=== PATIENT | female | born 1930 | race Caucasian/White ===

== ENCOUNTER 2016-07-09 13:12 | Emergency (ER) | payer MEDICARE, OTHER ==
[2016-07-09 13:42] VITALS: BP 155/58; PULSE 94; RESP 22; TEMP 98.4; O2SAT 98
== END 2016-07-09 15:13 | disposition home or self-care (01) | DRG 563 ==
LOC: ED 13:12
DX: S62.645A Nondisplaced fracture of proximal phalanx of left ring finger, initial encounter for closed fracture (principal); S52.612A Displaced fracture of left ulna styloid process, initial encounter for closed fracture; S62.647A Nondisplaced fracture of proximal phalanx of left little finger, initial encounter for closed fracture; S62.623A Displaced fracture of middle phalanx of left middle finger, initial encounter for closed fracture; M85.842 Other specified disorders of bone density and structure, left hand
CPT/HCPCS: 73130; 99282

== ENCOUNTER 2016-08-31 10:59 | Outpatient (CLI) | payer MEDICARE, OTHER ==
[2016-07-09 13:42] VITALS: O2SAT 98
== END 2016-08-31 11:00 | disposition home or self-care (01) | DRG 561 ==
LOC: CONVCARE 10:59
PROVIDERS: ATTEND Orthopaedic Surgery
DX: S62.617D Displaced fracture of proximal phalanx of left little finger, subsequent encounter for fracture with routine healing (principal); S62.615D Displaced fracture of proximal phalanx of left ring finger, subsequent encounter for fracture with routine healing; S62.613D Displaced fracture of proximal phalanx of left middle finger, subsequent encounter for fracture with routine healing
CPT/HCPCS: 73130

== ENCOUNTER 2018-05-18 15:57 | Emergency (ER) | payer MEDICARE, OTHER ==
[2018-05-18 20:52] VITALS: TEMP 97.1
[2018-05-18 21:02] VITALS: BP 138/76; PULSE 90; RESP 18; O2SAT 96
== END 2018-05-18 20:35 | disposition home or self-care (01) | DRG 563 ==
LOC: ED 15:57
DX: S62.92XA Unspecified fracture of left hand, initial encounter for closed fracture (principal); W17.89XA Other fall from one level to another, initial encounter; Y93.9 Activity, unspecified; Y92.9 Unspecified place or not applicable; Y99.9 Unspecified external cause status
CPT/HCPCS: 29125; 73030; 73070; 73130; 99282; 99284

== ENCOUNTER 2018-05-30 08:53 | Outpatient (CLI) | payer MEDICARE, OTHER ==
[2018-05-18 21:02] VITALS: O2SAT 96
== END 2018-05-30 08:54 | disposition home or self-care (01) | DRG 561 ==
LOC: CONVCARE 08:53
PROVIDERS: ATTEND Orthopaedic Surgery
DX: S62.301D Unspecified fracture of second metacarpal bone, left hand, subsequent encounter for fracture with routine healing (principal); S62.303D Unspecified fracture of third metacarpal bone, left hand, subsequent encounter for fracture with routine healing; S62.305D Unspecified fracture of fourth metacarpal bone, left hand, subsequent encounter for fracture with routine healing; S62.307D Unspecified fracture of fifth metacarpal bone, left hand, subsequent encounter for fracture with routine healing
CPT/HCPCS: 73130

== ENCOUNTER 2018-07-01 08:37 | Outpatient (CLI) | payer MEDICARE, OTHER ==
[2018-05-18 21:02] VITALS: O2SAT 96
== END 2018-07-01 08:38 | disposition home or self-care (01) | DRG 561 ==
LOC: CONVCARE 08:37
PROVIDERS: ATTEND Orthopaedic Surgery
DX: S62.307D Unspecified fracture of fifth metacarpal bone, left hand, subsequent encounter for fracture with routine healing (principal); S62.603D Fracture of unspecified phalanx of left middle finger, subsequent encounter for fracture with routine healing
CPT/HCPCS: 73130